=== PATIENT | female | born 1950 | race Caucasian/White ===

== ENCOUNTER 2017-03-24 12:36 | Inpatient (IN) | payer MEDICARE, SELFPAY ==
[2017-03-24 13:26] LABS: Bilirubin Negative (Negative); Blood, Urine Negative (Negative); Clarity CLEAR (Clear); Glucose, Urine (Dipstick) 100 mg/dL (Negative); Leukocyte Negative (Negative); Nitrite Negative (Negative); Protein, Urine (Dipstick) Negative (Neg-Trace); Specific Gravity, Urine 1.016 (1.002-1.036); Urobilinogen 0.2 mg/dL (0.2-1.0); pH, Urine 7.5 (5.0-9.0)
[2017-03-24 13:31] LABS: Hemoglobin 12.2 g/dL (12.0-16.0); Mean Corpuscular HGB CONC 32.9 g/dL (32.0-36.0); Mean Corpuscular Hemoglobin 30.6 pg (27.0-31.0); Mean Corpuscular Volume 92.7 fl (81.0-99.0); Mean Platelet Volume 8.1 fL (7.4-10.4); Platelet Count 262 thou/uL (130-400); RBC Distribution Width 13.7 % (11.5-14.5); White Blood Cell (WBC) Count 12.8 thou/uL (4.8-10.8)
[2017-03-24 13:35] LABS: Medtox Reader # READER 4; Phencyclidine (PCP) Not Detected (NotDetected); THC/Cannabinoid Screen Not Detected (NotDetected)
[2017-03-24 13:36] LABS: Amphetamine Not Detected (NotDetected); Barbiturates Screen Not Detected (NotDetected); Benzodiazepine Screen Not Detected (NotDetected); Cocaine Metabolite Screen Not Detected (NotDetected); Medtox Control Line Valid? VALID (VALID); Methadone Not Detected (NotDetected); Methamphetamine Not Detected (NotDetected); Opiate Screen Not Detected (NotDetected); Oxycodone Screen Not Detected (NotDetected); Tricyclic Screen Detected (NotDetected)
[2017-03-24 13:53] LABS: Acetaminophen Less than 6.0 mcg/mL (10.0-30.0); Alcohol Less than 10 mg/dL (Less than 10); Salicylate Less than 8.0 mg/dL (15.0-30.0)
[2017-03-24 13:57] LABS: Prothrombin Time 13.2 SEC (12.0-14.7)
[2017-03-24 13:58] LABS: Band 8 % (5-11); Lymphocytes 7 % (21-51); MDiff Complete? YES; Monocytes 2 % (0-10); Neutrophil 83 % (42-75); PLT Morphology Comment Appears Adequate
[2017-03-24 14:11] LABS: ALT (SGPT) 17 U/L (8-55); AST (SGOT) 26 U/L (5-34); Albumin 4.1 g/dL (3.4-4.8); Alkaline Phosphatase 91 U/L (40-150); Anion Gap 10 mmol/L (10-20); BUN (Urea Nitrogen) 13 mg/dL (9.8-20.1); Bilirubin, Total 0.4 mg/dL (0.2-1.2); Calc. Creatinine Clearance 0 mL/min (70-130); Calcium 9.3 mg/dL (7.8-10.44); Carbon Dioxide 31 mmol/L (23-31); Chloride 99 mmol/L (98-107); Estimated GFR-MDRD 82; Globulin 2.8 g/dL (2.4-3.5); Glucose 125 mg/dL (80-115); Lipase 9 U/L (8-78); Potassium 3.7 mmol/L (3.5-5.1); Protein, Total 6.8 g/dL (6.0-8.3); Sodium 137 mmol/L (136-145)
[2017-03-24 14:29] LABS: CKMB 2.9 ng/mL (0-6.6); Troponin I Less than 0.010 ng/mL (< 0.028)
--- NOTE | 2017-03-24 14:35 | CT ---
CT BRAIN WITHOUT CONTRAST: HISTORY: Altered mental status. COMPARISON: 01/09/2016 FINDINGS: Changes of mild chronic small vessel ischemic disease are again seen in the periventricular white mat ter. No evidence of acute infarct, hemorrhage, midline shift, or abnormal extraaxial fluid collectio ns is seen. The ventricular size is normal, and the basilar cisterns are patent. The bony calvarium is intact. The visualized paranasal sinuses and mastoid air cells are well aerated. IMPRESSION: No CT evidence of acute intracranial process. POS: OFF
--- NOTE | 2017-03-24 14:37 | RAD ---
PORTABLE CHEST ONE VIEW: 03/24/2017 2:29 p.m. HISTORY: Altered mental status, possible overdose on tramadol. COMPARISON: 12/10/2015 FINDINGS: The heart is enlarged. There is pulmonary vascular congestion. No lobar consolidation, pneumothorac es, or large effusions are seen. POS: OFF
[2017-03-24] MEDS ORDERED: Acetaminophen 650 MG Suppository ONE (15:02)
[2017-03-24] MEDS ORDERED: Naloxone HCl 0.4 mg/ml Vial IV PRN (17:35)
[2017-03-24] MEDS: Sodium Chloride 0.9% 1,000 ML IV SCH (19:35)
[2017-03-24] MEDS ORDERED: Ondansetron HCl/PF 4 MG/2 ML Vial IVP PRN (19:41)
[2017-03-24] MEDS ORDERED: Ondansetron ODT 4 MG TAB SL PRN (19:41)
[2017-03-24] MEDS ORDERED: Acetaminophen 325 MG TAB PO PRN (19:41)
[2017-03-24] MEDS: Heparin 5,000 UNITS/ML VIAL SC SCH (21:55)
--- NOTE | 2017-03-24 22:22 | HP ---
PRIMARY CARE PHYSICIAN: Unknown. PRESENTING COMPLAINT: Altered mental status. HISTORY OF PRESENT ILLNESS: A 67-year-old patient who was found with a change of mental status at home. Her mother found her on the ground with an empty bottle of tramadol by her side. It seemed she has had ingested at least 10 pills, but total amount is actually unknown as is the time of ingestion. EMS was immediately called and the patient was given Narcan, which she seems to respond to and was alert and oriented x2. History limited due to the patient being lethargic. On arrival at the emergency room, she was hypertensive with blood pressure of 172/76 with a pulse rate of 26 and a respiratory rate of 21. She was saturating at 88% on room air. She was immediately placed on nasal cannula oxygen. Labs revealed mild leukocytosis. Chemistry was largely unrevealing with troponin less than 0.010. TSH was 1.6. Urine toxicology detected tricyclics. Emergency room physicians called Poison Control and recommendation was conservative managements with IV fluids and to be on the lookout for possible serotonin syndrome. PAST MEDICAL HISTORY: Chronic lower back pain, migraine headaches, hypothyroidism and diverticulitis. PAST SURGICAL HISTORY: Lumpectomy and lipomectomy. ALLERGIES: PENICILLIN and PROPOXYPHENE. FAMILY AND SOCIAL HISTORY: Unobtainable due to patient's current condition. She is a former smoker with no history of drug use or alcohol use (from chart review). REVIEW OF SYSTEMS: Review of systems is unobtainable due to patient's current altered status. PHYSICAL EXAMINATION: GENERAL: The patient is lethargic, but oriented to person and place. VITAL SIGNS: Blood pressure is 132/84, heart rate is 95, respiratory rate is 20 , she is saturating at 92% on 4 liters of supplemental oxygen via nasal cannula. HEENT: Pupils are dilated, responsive to the light. No pallor, anicteric. NECK: Supple. LUNGS: Patient is taking shallow breaths, but vesicular with no wheezes or rales appreciated. CARDIOVASCULAR: S1 and S2 only. No murmurs, rubs or gallop. ABDOMEN: Soft, nontender and nondistended. Positive bowel sounds. No organomegaly. EXTREMITIES: No edema. NEUROLOGIC: Unable to cooperate with exam. SKIN: Warm, dry and well-perfused. MUSCULOSKELETAL: No abnormalities or deformities appreciated. LABORATORY DATA: CBC and CMP unremarkable. Urinalysis also unremarkable. Toxicology with only significant finding being tricyclic detected. IMAGING DATA: Chest x-ray: Enlarged heart with vascular congestion, but no consolidation or effusions. CT brain without contrast showed no acute pathology. ASSESSMENT AND PLAN: 1. Medication overdose, unclear if it is an accidental or intentional overdose. Patient will be admitted to tele and recommendation from Poison Control is to monitor the patient for at least 6-8 hours and observe for possible serotonin syndrome. She will be placed on tele given liberal IV fluids. We will obtain an [facility] evaluation when patient is more alert and oriented. We will also have Narcan p.r.n. for any signs of respiratory depression. 2. Anxiety and depression. The patient's medication will be held. 3. Chronic pain disorder, also her medications will be held and she will be observed closely while in the hospital. Of note, patient also has a history of fibromyalgia and this is actually her second episode of accidental overdose of prescription medications. Last admission was in 12/2016 where she reported taking extra medications due to continued pain. She became altered and required admission to the ICU, but no intubation. TONNY
[2017-03-25] MEDS: Sodium Chloride 0.9% 1,000 ML IV SCH ×2 (00:51→14:57)
[2017-03-25] MEDS ORDERED: SUMAtriptan Succinate 50 MG TAB PO SCH (01:45)
[2017-03-25 01:51] VITALS: BMI 34.1
[2017-03-25 05:40] LABS: #Basophils 0.1 thou/uL (0.0-0.2); #Eosinphils 0.1 thou/uL (0.0-0.7); #Lymphocytes 1.8 thou/uL (1.20-3.40); #Monocytes 0.7 thou/uL (0.11-0.59); #Neutrophils 11.9 thou/uL (1.40-6.50); %Basophils 0.8 % (0.0-1.0); %Eosinophils 0.7 % (0.0-10.0); %Neutrophils 81.5 % (42.0-75.0); Hemoglobin 11.8 g/dL (12.0-16.0); Mean Corpuscular HGB CONC 31.7 g/dL (32.0-36.0); Mean Corpuscular Volume 94.5 fl (81.0-99.0); Mean Platelet Volume 9.1 fL (7.4-10.4); Platelet Count 245 thou/uL (130-400); Red Blood Cell (RBC) Count 3.92 mill/uL (4.20-5.40); White Blood Cell (WBC) Count 14.6 thou/uL (4.8-10.8)
[2017-03-25 05:49] LABS: Anion Gap 10 mmol/L (10-20); BUN (Urea Nitrogen) 11 mg/dL (9.8-20.1); Calc. Creatinine Clearance 132 mL/min (70-130); Calcium 8.6 mg/dL (7.8-10.44); Carbon Dioxide 28 mmol/L (23-31); Chloride 104 mmol/L (98-107); Estimated GFR-MDRD Greater than 90; Glucose 79 mg/dL (80-115); Potassium 3.5 mmol/L (3.5-5.1); Sodium 138 mmol/L (136-145)
[2017-03-25] MEDS ORDERED: Levothyroxine Sodium 50 MCG TAB PO SCH (08:00)
[2017-03-25] MEDS ORDERED: Non-Formulary Item 1 EACH (Esomeprazole Magnesium [Nexium] 40 MG) PO SCH (08:00)
[2017-03-25] MEDS ORDERED: Potassium Chloride 20 MEQ TAB PO SCH (08:00)
[2017-03-25] MEDS ORDERED: traMADol HCl 50 MG TAB PO PRN (08:58)
[2017-03-25] MEDS ORDERED: Non-Formulary Item 1 EACH (Pregabalin [Lyrica] 300 MG) PO SCH (09:00)
[2017-03-25] MEDS ORDERED: Escitalopram Oxalate 10 mg Tablet PO SCH (09:00)
[2017-03-25] MEDS ORDERED: Levothyroxine Sodium 112 MCG TAB PO SCH (09:00)
[2017-03-25] MEDS: Heparin 5,000 UNITS/ML VIAL SC SCH ×2 (09:15→14:53)
[2017-03-25] MEDS ORDERED: Pregabalin 75 MG CAP PO SCH ×2 (10:30→21:00)
[2017-03-25 15:55] VITALS: BP 146/67; TEMP 99.3
--- NOTE | 2017-03-26 02:50 | DIS ---
DATE OF ADMISSION: 03/24/2017 DATE OF DISCHARGE: 03/25/2017 PRIMARY DIAGNOSIS: Medication overdose. SECONDARY DIAGNOSES: Anxiety/depression, chronic pain disorder, hypothyroidism, migraine headaches HISTORY OF PRESENT ILLNESS AND HOSPITAL COURSE: This is a 67-year-old patient, Ms. Xenia cervantes presented to the emergency room after being found with a change of mental status at home. The pat trini's mother found on the ground with an empty bottle of tramadol by her side. It seems she had ing ested maybe 10 pills, but total amount actually unknown as well as the time of ingestion. EMS was im mediately called and patient was given Narcan on which she seemed to respond to and became alert and oriented x2. History limited due to patient being lethargic. On examination of the emergency room, she was hypertensive with blood pressure of 172/76 with a pulse rate of 26 and respiratory rate of 21 . She was saturating at 88% on room air. She was immediately placed on nasal cannula oxygen. Labs revealed mild leukocytosis. Serum chemistry was largely unrevealing with troponin less than 0.010. TSH was 1.6. Urine toxicology detected tricyclics, which the patient takes at home. Emergency room physician called Poison Control. Recommendation was conservative management with IV fluids. Monitor on telemetry for at least 6 hours and to be on the lookout for possible serotonin syndrome. During her stay, she became alert and oriented x3 and was back to her baseline. Labs were unremarkable. Di scussion was had with the patient regarding her medication use and she denied intention of ingestion of her pain meds. Further discussion was held regarding to dialing down on her pain medication due t o this pain, second time she was admitted for medication overdose. The patient declined and would li ke to continue to take her medications as prescribed by her primary care physician. She was then dis charged without incident. DISCHARGE MEDICATIONS: Potassium chloride 20 mEq every morning with breakfast for 5 days, levothyrox ine sodium 50 mcg daily, cyclobenzaprine 10 mg orally at bedtime as needed, esomeprazole 40 mg oral e very morning with breakfast, tramadol 50 mg 3 times a day as needed for pain, pregabalin 300 mg twice daily, citalopram 10 mg oral daily, acetaminophen 325 mg 4 times a day as needed for pain. PHYSICAL EXAMINATION: VITAL SIGNS: Temperature 97.8, pulse 66, blood pressure 130/60, respirations 17, oxygen saturation 9 7% on room air. LABORATORY DATA: Sodium 138, potassium 3.5, chloride 104, carbon dioxide 28, anion gap 7, BUN 11, cr eatinine 0.58. WBC 14.6, RBC 3.92, hemoglobin 11.8, platelets 245. DISPOSITION: Stable and improved. CONSULTATION: Poison Control. PROCEDURES: None. DIET: Regular. CARE GOALS: The patient encouraged to follow up with her primary care physician within 1 week of dis charge. She is also encouraged to return to the emergency room if she developed any episode of confu amador, chest pain, shortness of breath or loss of consciousness. ACTIVITY: To resume as tolerated. At the time of discharge, 65 minutes including chart review and d ocumentation.
[2017-03-26] MEDS ORDERED: Levothyroxine Sodium 50 MCG TAB PO SCH (06:00)
--- NOTE | 2017-05-03 14:21 | EKG ---
Test Reason : AMS Blood Pressure : / mmHG Vent. Rate : 095 BPM Atrial Rate : 095 BPM P-R Int : 156 ms QRS Dur : 106 ms QT Int : 368 ms P-R-T Axes : 058 026 053 degrees QTc Int : 462 ms Normal sinus rhythm Normal ECG Confirmed by RAHUL SOLORZANO M.D. ([id number]), content editor GIAN ORDAZ ([id number]) on 05/03/2017 2:20:57 PM Referred By: Confirmed By:RAHUL SOLORZANO M.D.
== END 2017-03-25 15:45 | disposition home or self-care (01) | DRG 918 ==
LOC: ERS 12:36 → OBSVTOIN 15:43 → 2NO 15:43
PROVIDERS: ADMIT Internal Medicine; ATTEND Internal Medicine
DX: T40.4X1A Poisoning by other synthetic narcotics, accidental (unintentional), initial encounter (principal); I15.8 Other secondary hypertension; E03.9 Hypothyroidism, unspecified; Y92.019 Unspecified place in single-family (private) house as the place of occurrence of the external cause; G89.29 Other chronic pain; M54.5 Low back pain; G43.909 Migraine, unspecified, not intractable, without status migrainosus; Z88.0 Allergy status to penicillin; Z88.8 Allergy status to other drugs, medicaments and biological substances; F41.9 Anxiety disorder, unspecified; F32.9 Major depressive disorder, single episode, unspecified; M79.7 Fibromyalgia; Z87.891 Personal history of nicotine dependence
CPT/HCPCS: 36415; 36416; 70450; 71045; 80048; 80053; 80306; 80307; 81003; 82553; 83690; 83735; 84443; 84484; 85025; 85610; 87804; 93005; 96360; 96361; A4216; J1644

== ENCOUNTER 2018-02-14 07:46 | Inpatient (IN) | payer MEDICARE ==
[2018-02-14 08:34] LABS: #Eosinphils 0.1 thou/uL (0.0-0.7); #Lymphocytes 1.2 thou/uL (1.20-3.40); #Monocytes 0.7 thou/uL (0.11-0.59); #Neutrophils 10.4 thou/uL (1.40-6.50); %Basophils 0.3 % (0.0-1.0); %Eosinophils 0.5 % (0.0-10.0); %Lymphocytes 9.3 % (21.0-51.0); %Monocytes 5.6 % (0.0-10.0); %Neutrophils 84.2 % (42.0-75.0); Mean Corpuscular HGB CONC 32.8 g/dL (32.0-36.0); Mean Corpuscular Hemoglobin 28.7 pg (27.0-31.0); Mean Corpuscular Volume 87.2 fL (78.0-98.0); Mean Platelet Volume 7.7 fL (7.4-10.4); Platelet Count 300 thou/uL (130-400); RBC Distribution Width 13.1 % (11.5-14.5); Red Blood Cell (RBC) Count 4.19 mill/uL (4.20-5.40); White Blood Cell (WBC) Count 12.3 thou/uL (4.8-10.8)
[2018-02-14 08:53] LABS: ALT (SGPT) 20 U/L (8-55); AST (SGOT) 30 U/L (5-34); Acetaminophen Less than 6.0 mcg/mL (10.0-30.0); Albumin 4.1 g/dL (3.4-4.8); Alcohol Less than 10 mg/dL (Less than 10); Alkaline Phosphatase 88 U/L (40-150); Anion Gap 14 mmol/L (10-20); BUN (Urea Nitrogen) 16 mg/dL (9.8-20.1); Bilirubin, Total 0.5 mg/dL (0.2-1.2); CK (CPK) 602 U/L (29-168); Calc. Creatinine Clearance 0 mL/min (70-130); Calcium 8.9 mg/dL (7.8-10.44); Carbon Dioxide 27 mmol/L (23-31); Chloride 96 mmol/L (98-107); Estimated GFR-MDRD 74; Globulin 2.4 g/dL (2.4-3.5); Glucose 99 mg/dL (80-115); Potassium 4.6 mmol/L (3.5-5.1); Protein, Total 6.5 g/dL (6.0-8.3); Salicylate Less than 8.0 mg/dL (15.0-30.0); Sodium 132 mmol/L (136-145)
[2018-02-14 09:12] LABS: Analyzer IN Cardio ER; Base Excess (BEa) 1.6 mEq/L (-2.0 to +3.0); CO2 Tension 40.3 mmHg (35.0-45.0); Carboxyhemoglobin (COHb) 0.3 gm% (0.0-3.0); Hemoglobin (Hb) 12.7 g/dL (12.0-16.0); O2 Tension (PaO2) 65.7 mmHg (> 80.0); Potassium - ABG Lab 4.32 mmol/L (3.70-5.30); pH, Arterial 7.43 (7.35-7.45)
[2018-02-14 09:15] LABS: ALV-art Gradient 55.045 (0-20)
[2018-02-14 09:16] LABS: Puncture Site RR
[2018-02-14 09:27] LABS: Bilirubin Negative (Negative); Blood, Urine Negative (Negative); Clarity CLEAR (Clear); Glucose, Urine (Dipstick) 250 mg/dL (Negative); Leukocyte Negative (Negative); Nitrite Negative (Negative); Protein, Urine (Dipstick) Negative (Neg-Trace); Specific Gravity, Urine 1.023 (1.002-1.036); Urobilinogen 0.2 mg/dL (0.2-1.0)
[2018-02-14 09:37] LABS: Amphetamine Not Detected (NotDetected); Barbiturates Screen Not Detected (NotDetected); Benzodiazepine Screen Not Detected (NotDetected); Cocaine Metabolite Screen Not Detected (NotDetected); Medtox Control Line Valid? VALID (VALID); Medtox Reader # READER 1; Methadone Not Detected (NotDetected); Methamphetamine Not Detected (NotDetected); Opiate Screen Not Detected (NotDetected); Oxycodone Screen Not Detected (NotDetected); Phencyclidine (PCP) Not Detected (NotDetected); THC/Cannabinoid Screen Not Detected (NotDetected); Tricyclic Screen Detected (NotDetected)
--- NOTE | 2018-02-14 09:59 | CT ---
NONCONTRAST CT HEAD: DATE: 02/14/2018. HISTORY: Altered mental status. COMPARISON: 03/24/2017. FINDINGS: Again noted are scattered low-density areas in the periventricular and subcortical white matter which are nonspecific but likely reflective of chronic small-vessel ischemic changes which have not progre ssed from the prior exam. There is no evidence of an acute cortical infarction, hemorrhage, mass eff ect, or midline shift. Low-density focus is seen within the anterior limb of left internal capsule w hich is more prominent on the prior exam and may be likely attributable to remote lacunar infection. Ventricular system is normal in size, shape, and position. Minimal mucosal thickening is seen in a few ethmoidal air cells. Mastoid air cells are clear. Calvarial structures are intact. IMPRESSION: 1. No acute intracranial abnormalities demonstrated. 2. Findings likely attributable to chronic small-vessel ischemic changes similar to prior exam. 3. Probable remote lacunar infarction anterior limb left internal capsule. POS: [facility]
--- NOTE | 2018-02-14 10:08 | RAD ---
ONE VIEW CHEST: COMPARISON: 03/24/2017. HISTORY: Altered mental status. FINDINGS: Atherosclerosis of the aorta. Normal cardiac silhouette. The pulmonary vessels and hilum are normal . Costophrenic angles are clear. NO mass. No consolidation. No pneumothorax or osseous abnormalit ies. IMPRESSION: Atherosclerosis. No acute cardiopulmonary process. POS: [facility]
--- NOTE | 2018-02-14 10:23 | CT ---
CT ANGIOGRAM THORAX WITH IV CONTRAST AND 3D RECONSTRUCTIONS: DATE: 02/14/2018. HISTORY: Elevated D-dimer. Bilateral leg pain. COMPARISON: None available. FINDINGS: No filling defects are seen in the pulmonary arteries to suggest a pulmonary embolus. Vascular calcifications are seen in the thoracic aorta, but the thoracic aorta is normal in caliber w ithout evidence of aortic dissection. There are a few scattered patchy ground-glass densities at each lung base which could be related to v olume loss as this exam was obtained in shallow depth of inspiration, but areas of pneumonitis could not be entirely excluded. There is dependent atelectasis bilaterally. No pleural effusion, pulmonar y nodule, or mass is visualized. There is gaseous distention of the esophagus. There is no evidence of lymphadenopathy. There is a small aneurysm involving the distal left splenic artery measuring 15 mm x 12 mm in axial d imensions. There is a suggestion of a very small hiatal hernia. There is a moderate amount of retained fecal material in the region of the splenic flexure with a sma ll amount of retained fecal material within the hepatic flexure. IMPRESSION: 1. Small splenic artery aneurysm. 2. Ground-glass densities within the lungs bilaterally, and this may be attributable to atelectasis given that this exam was obtained in expiratory phase of imaging. However, areas of pneumonitis coul d not be entirely excluded. 3. No CT evidence of a pulmonary embolus. 4. Vascular calcifications. 5. Distention of the gallbladder measuring 10.1 cm in length. No pericholecystic fluid or stranding is seen on this exam. 6. No CT evidence of a pulmonary embolus. POS: [facility]
--- NOTE | 2018-02-14 10:26 | CT ---
CT LEFT KNEE NONCONTRAST: HISTORY: Left knee fracture. FINDINGS: Sagittally oriented oblique fracture through the articular surface of the medial tibial plateau is pr esent with 0.4 cm gap and 0.1 cm depression. Nondisplaced comminuted coronally oriented components a lso involve the anterior aspect of the tibial spines. The major fracture exits the medial base of th e medial tibial plateau with 0.2 cm displacement. Minimally distracted comminuted axial fracture of the proximal tip of the fibular head is best demonstrated on the sagittal images. Heterogeneous flui d and fat distend the suprapatellar bursa. Osteoarthritic changes also involve the knee. Within the bone marrow of the partially visualized femoral shaft and the proximal tibial shaft are la kes of heterogeneous density that may represent vascular anomalies. IMPRESSION: 1. Split depression fracture of the medial tibial plateau with large lipohemarthrosis. Minimal depr ession. 2. Fibular head fracture. POS: [facility]
--- NOTE | 2018-02-14 10:34 | RAD ---
FOUR VIEWS LEFT KNEE: HISTORY: Pain. Fall. COMPARISON: 09/22/2015. FINDINGS: There is a large suprapatellar effusion. There is a fracture involving the proximal fibula as well a s the tibial plateau medially. There is intraarticular extension. IMPRESSION: Suprapatellar effusion with a fat fluid level. Proximal tibia and fibula fractures. POS: [facility]
[2018-02-14] MEDS ORDERED: Multivitamins, Adult 10 ML, Thiamine HCl 100 MG, Folic Acid 1 MG in Dextrose 5 %-0.45 %... IV SCH (11:30)
[2018-02-14] MEDS ORDERED: Iopamidol 370 76% 100 ML VIAL ONE (14:27)
[2018-02-14 16:40] VITALS: BMI 31.1
[2018-02-14] MEDS ORDERED: Acetaminophen 650 MG Suppository PR PRN (16:41)
[2018-02-14] MEDS ORDERED: Ondansetron PF 4 MG/2 ML Vial IVP PRN (16:41)
[2018-02-14] MEDS: Famotidine 20 MG TAB PO SCH (20:47)
[2018-02-14] MEDS: Sodium Chloride 0.9% 1,000 ML IV SCH (20:48)
--- NOTE | 2018-02-14 21:37 | HP ---
PRIMARY CARE PHYSICIAN: Dr. Janene Paul or Dr. Dominguez, uncertain at this time. CHIEF COMPLAINT: Found down, altered mental status. HISTORY OF PRESENT ILLNESS: History obtained from emergency physician and from EMS as the patient is altered and unable to give history. The patient was brought by EMS from home, where she lives with her mother. There was by EMS report a fall one week ago with complaint of right leg pain and this morning fall again with complaint of left leg pain and upper right leg pain. The patient was unable to get up after the fall. She was down for an unknown length of time. She was found to be saturating 85% on room air by EMS and to be mumbling, unable to communicate clearly. The patient was brought to the emergency room, there she had a CT of the head, which has showed an old lacunar infarct, nothing acute. She also had an elevated D-dimer of 20. A CTA of the chest was negative for clots and she had an x-ray of the left knee, which showed a tibial plateau fracture and proximal fibular fracture. CT confirmed these, Dr. Price was consulted from the emergency room, he stated to put her in a brace and wait until she clears before doing surgery. The patient was given IV fluids and perked up a little bit in the emergency room; however, she still mostly incoherently mumbling and not able to give any history. She is able to follow some basic commands. PAST MEDICAL HISTORY: All medical history taken from the chart as the patient is altered at this time. 1. Chronic low back pain. 2. Migraine headaches. 3. Hypothyroidism. 4. Diverticulosis. PAST SURGICAL HISTORY: 1. Lumpectomy. 2. Lipectomy. 3. Tonsillectomy and adenoidectomy. SOCIAL HISTORY: The patient is reportedly a former smoker. No known drug or alcohol abuse in the chart, though she has had multiple admissions for prescription medication overdose. She lives with her elderly mother. PAST PSYCHIATRIC HISTORY: Depression. ALLERGIES: PENICILLIN AND PROPOXYPHENE. CURRENT MEDICATIONS: Unknown. REVIEW OF SYSTEMS: Unable to obtain secondary to the patient's altered mental status. PHYSICAL EXAMINATION: VITAL SIGNS: Blood pressure 114/79, pulse 75, respirations 20, O2 saturation 98% on 2 L, temperature 98.1. GENERAL: This is a well-developed obese white female, who is alert, but muttering and mumbling and unable to communicate clearly. HEENT: Pupils are equal, round, and reactive to light. She does have some rotary nystagmus. Oropharynx, dry. No exudate or lesions. NECK: No masses. No evidence of trauma. No lymphadenopathy. HEART: Regular rate and rhythm. No murmurs, rubs, or gallops. LUNGS: Clear to auscultation bilaterally. No wheezes, crackles, or rhonchi. ABDOMEN: Soft, obese, nontender to palpation. Normoactive bowel sounds. No hepatosplenomegaly or other masses. EXTREMITIES: The patient has a brace to the left knee. She has no other evidence of trauma. No tenderness on palpation. SKIN: No rashes or lesions noted. NEUROLOGIC: The patient seems to be moving all extremities equally. She does have a bit of a tremor. Her coordination does not appear to be very good right now. I will do a full neurologic exam due to her altered mental status. PSYCHIATRIC: She is alert. She is unable to tell me even her name right now, though she was able to for the ER doctor earlier. She is mostly mumbling and muttering, saying she needs to get out of bed as far as I can tell, but no other understandable mutters at this time. This is fluctuated as far as her level per the nursing since she has gotten here. LABORATORY DATA: White blood cell count 12.3 with a neutrophilic predominance of 84%. The remainder of the CBC was normal. Coagulation profile showed a D-dimer of 20. Arterial blood gas showed normal pH, normal pCO2, and normal pO2. Complete metabolic panel was notable for a sodium of 132, chloride of 96. The rest was normal. Creatine kinase was elevated at 602. Brain natriuretic peptide was normal. Lipase was normal. Troponin was negative. Ammonia level was normal. Lactic acid was normal. Urinalysis showed no evidence of infection. Toxicology report just showed positive for tricyclics. DIAGNOSTIC DATA: Chest x-ray: I did review the chest x-ray done in the emergency room along with the radiologist's report, no evidence of infiltrates or cardiomegaly. No congestion. No congestive changes. No evidence of trauma. CT brain imaging and CTA of the chest are as above in the HPI. EKG done in the emergency room shows rate of 82 beats per minute, occasional PVCs, OR interval was normal. ASSESSMENT: 1. Fall with tibial plateau fracture and fibular fracture. The patient is currently in a brace when she clears mentally then Dr. Price will likely take her back to surgery. 2. Acute encephalopathy. This is given her history is most likely due to another overdose of her tramadol and other medications. She has had multiple presentations for this over the last few years. We will watch her on telemetry and make certain that her O2 saturations stay up and that she make sure that she clears overtime. I anticipated over the next day or so, she will start speaking more coherently. At this point, I do not see any other metabolic or source for this altered mental status. She does not have any evidence of acute stroke on her exam. If she does remain altered without any improvement, we can always consider an MRI. 3. Hypothyroidism. Resume home medications. 4. Chronic back pain. We will need to hold on narcotic pain medications at this time due to her altered mental status, though she will likely need some pain medicine for her fractured leg when she starts to clear. 5. Deep venous thrombosis prophylaxis. Put the patient on Lovenox daily. 6. Code status. Unable to discuss due to the patient's altered mental status and no family available at this time. For now, she is a full code. Job ID: [id number]
[2018-02-15] MEDS ORDERED: Morphine 4 MG/ML VIAL SLOW IVP SCH (03:00)
[2018-02-15 05:46] LABS: #Basophils 0.1 thou/uL (0.0-0.2); #Eosinphils 0.3 thou/uL (0.0-0.7); #Lymphocytes 1.3 thou/uL (1.20-3.40); #Monocytes 0.6 thou/uL (0.11-0.59); #Neutrophils 6.8 thou/uL (1.40-6.50); %Basophils 0.7 % (0.0-1.0); %Eosinophils 3.1 % (0.0-10.0); %Lymphocytes 14.6 % (21.0-51.0); %Monocytes 6.4 % (0.0-10.0); %Neutrophils 75.2 % (42.0-75.0); Mean Corpuscular HGB CONC 33.3 g/dL (32.0-36.0); Mean Corpuscular Hemoglobin 29.2 pg (27.0-31.0); Mean Corpuscular Volume 87.6 fL (78.0-98.0); Mean Platelet Volume 8.1 fL (7.4-10.4); Platelet Count 284 thou/uL (130-400); RBC Distribution Width 13.3 % (11.5-14.5); Red Blood Cell (RBC) Count 4.47 mill/uL (4.20-5.40)
[2018-02-15] MEDS: Levothyroxine Sodium 50 MCG TAB PO SCH (06:04)
[2018-02-15 06:08] LABS: Anion Gap 14 mmol/L (10-20); BUN (Urea Nitrogen) 5 mg/dL (9.8-20.1); Calc. Creatinine Clearance 109 mL/min (70-130); Calcium 9.1 mg/dL (7.8-10.44); Carbon Dioxide 26 mmol/L (23-31); Chloride 104 mmol/L (98-107); Estimated GFR-MDRD Greater than 90; Glucose 89 mg/dL (80-115); Potassium 3.8 mmol/L (3.5-5.1); Sodium 140 mmol/L (136-145)
[2018-02-15] MEDS: Famotidine 20 MG TAB PO SCH ×2 (09:21→20:58)
[2018-02-15] MEDS ORDERED: Clindamycin/D5W 900 MG in Premix Bag 1 BAG IVPB SCH (09:30)
[2018-02-15] MEDS: Sodium Chloride 0.9% 1,000 ML IV SCH ×2 (09:32→21:00)
--- NOTE | 2018-02-15 11:18 | PDOC.PN ---
- Subjective Encounter Start Date: 02/15/18 Encounter Start Time: 11:05 Subjective: f/u for L tibial plateau and prox fibula fx s/p fall. Also AMS likely -: due to medication effect. Overall c/o whole body pain and fibromyalgia. - Objective Resuscitation Status - Order Detail: 02/14/18 14:03 Resuscitation Status Routine Resuscitation Status: FULL: Full Resuscitation MAR Reviewed: Yes Vital Signs & Weight: Vital Signs (12 hours) Temp Pulse Resp BP Pulse Ox 02/15/18 09:19 98.6 F 64 16 177/83 H 96 02/15/18 03:02 98.7 F 76 18 147/84 H 98 Weight Weight 173 lb 12.8 oz I&O: 02/14/18 02/15/18 02/16/18 06:59 06:59 06:59 Intake Total 1540 Output Total 2600 Balance -1060 Result Diagrams: 02/15/18 05:02 02/15/18 05:02 Radiology Reviewed by me: Yes (L knee - prox tibial plateau and prox fibula fx) EKG Reviewed by me: Yes (Tele - SR) Phys Exam - Physical Examination Constitutional: NAD HEENT: PERRLA, sclera anicteric, oral pharynx no lesions Neck: no nodes, no JVD, supple, full ROM Respiratory: no wheezing, no rales, no rhonchi, clear to auscultation bilateral S1, S2 Cardiovascular: RRR, no significant murmur, no rub, gallop Gastrointestinal: soft, non-tender, no distention, positive bowel sounds L knee with edema Musculoskeletal: pulses present, edema present Neurological: normal sensation, moves all 4 limbs Psychiatric: A&O x 3 Skin: normal turgor, cap refill <2 seconds Dx/Plan (1) Acute metabolic encephalopathy Code(s): G93.41 - METABOLIC ENCEPHALOPATHY Status: Acute Comment: Likely polypharmacy etiology, improved overall, resume and monitor home medications, may need to titrate psychotropes (2) Closed fracture of left proximal tibia Code(s): S82.102A - UNSP FRACTURE OF UPPER END OF LEFT TIBIA, INIT FOR CLOS FX Status: Acute Comment: Plan for ORIF in am 02/16/18, pain control (3) Fracture of left proximal fibula Code(s): S82.832A - OTH FRACTURE OF UPPER AND LOWER END OF LEFT FIBULA, INIT Status: Acute (4) Medication overdose Code(s): T50.901A - POISONING BY UNSP DRUG/MEDS/BIOL SUBST, ACCIDENTAL, INIT Status: Suspected Comment: Suspect polypharmacy, monitor clinically (5) Anxiety and depression Code(s): F41.9 - ANXIETY DISORDER, UNSPECIFIED; F32.9 - MAJOR DEPRESSIVE DISORDER, SINGLE EPISODE, UNSPECIFIED Status: Chronic (6) Fibromyalgia Status: Chronic - Plan psychotherapist social worker Stable currently -: Lovenox for DVT ppx -: Morphine Sulfate IV prn pain control -: Continue IVF's -: ORIF L knee/tibia in am 02/16/18 * .
[2018-02-15] MEDS: Enoxaparin Sodium 40 MG/0.4 ML SYRINGE SC SCH (11:58)
[2018-02-15] MEDS: traMADol HCl 50 MG TAB PO PRN ×2 (11:58→20:58)
--- NOTE | 2018-02-15 12:26 | CON ---
DATE OF CONSULTATION: REQUESTING PHYSICIAN: Dr. Fiore. BRIEF HISTORY OF PRESENT ILLNESS: The patient is a 67-year-old lady, who was brought to the emergency room by family members after a fall at home. Upon initial evaluation by the emergency medical services at home, she was found to have low oxygen saturations, had a complaint of left leg pain and was found to be confused. On evaluation in the emergency room, she clearly was incoherent and not alert or oriented. As such, the patient was admitted to the medical service. Workup included chest x-ray, CT angiogram of the chest that showed no evidence of clot or pulmonary emboli. She also had x-rays performed of the left leg that did show an anteromedial tibial plateau fracture and a small avulsion injury from the proximal fibula. The patient was placed in a knee immobilizer and has been worked up by the medical service, and at this time, is felt to be stable for surgical intervention. PAST MEDICAL HISTORY: Remarkable for chronic low back pain, migraine headaches, hypothyroidism, and diverticulosis. PAST SURGICAL HISTORY: Includes lumpectomy, tonsillectomy, and adenoids. SOCIAL HISTORY: The patient is a former smoker. She denies alcohol abuse, although does have some difficulties with prescription medications and has been present in the emergency room for a prior prescription medication overdose. ALLERGIES: TO PENICILLIN AND PROPOXYPHENE. MEDICATIONS AT HOME: Include, 1. Acetaminophen. 2. Cleocin. 3. Nexium. 4. Flexeril. 5. Levothyroxine. PHYSICAL EXAMINATION: VITAL SIGNS: She was found to have a temperature of 98.6, heart rate of 64, respiratory rate of 16, and blood pressure of 177/83. She is examined in her hospital bed at [facility]. GENERAL: She is a mildly overweight female, who is lying comfortably in bed. She does appear coherent this morning and is awake, alert, and oriented to person, place, and time. HEENT: Atraumatic, normocephalic. HEART: Shows a regular rate and rhythm without murmur. LUNGS: Clear to auscultation bilaterally with good breath sounds. Chest wall is nontender. ABDOMEN: Round and soft with normal bowel sounds. EXTREMITIES: Remarkable for a left lower extremity and knee immobilizer. She was found to have a 1+ hemarthrosis within the knee. Range of motion not tested due to the acute nature of her injury. She is tender to palpation at the anteromedial tibial plateau as well as at the proximal fibula, although no gross deformity or varus or valgus deformity at the knee is noted. Distal neurovascular exam is intact. She is able to dorsi and plantar flex her ankle and toes comfortably. There is no pain with passive stretch. LABORATORY DATA: White count of 9.0, hematocrit of 39.1, and 284,000 platelets. Her basic metabolic panel is roughly within normal limits with a slightly low BUN on this followup lab. X-rays are as stated in the history of present illness. ASSESSMENT: A 67-year-old lady status post ground level fall sustaining a fracture of anteromedial tibial plateau with mild depression of the anteromedial fragment as well as a small avulsion type injury of the proximal fibula. PLAN: Today, I discussed with the patient that she does indeed have a mildly displaced fracture of the tibial plateau. We have discussed treatment options including benign neglect versus proceeding with an open reduction and internal fixation to try and restore the joint surface to a more anatomical alignment. At this time, the patient would like to proceed with surgery. Today, risks and benefits of the procedure were discussed with the patient. Risks include, but are not limited to bleeding, infection, nerve injury, DVT, PE, knee arthritis, knee stiffness, loss of limb or life. The patient appears to understand and does wish to proceed. Written consent will be obtained prior to surgery. Job ID: [id number]
[2018-02-15] MEDS: Morphine 4 MG/ML VIAL SLOW IVP PRN ×2 (14:02→23:41)
[2018-02-15] MEDS: Acetaminophen 325 MG TAB PO PRN (15:58)
[2018-02-15] MEDS: Cyclobenzaprine 10 MG TAB PO PRN (20:59)
[2018-02-16] MEDS: Morphine 4 MG/ML VIAL SLOW IVP PRN ×2 (05:08→21:58)
[2018-02-16] MEDS: Levothyroxine Sodium 50 MCG TAB PO SCH (05:09)
[2018-02-16] MEDS ORDERED: Clindamycin/D5W 900 mg/50 ml Premix Bag ONE (06:51)
[2018-02-16] MEDS ORDERED: Fentanyl 100 MCG/2 ML VIAL ONE ×2 (08:02→10:00)
[2018-02-16] MEDS ORDERED: Promethazine HCl 25 MG/ML VIAL IM PRN (09:08)
[2018-02-16] MEDS ORDERED: Promethazine HCl 25 MG/ML VIAL SLOW IVP PRN (09:08)
[2018-02-16] MEDS ORDERED: Ondansetron HCl/PF 4 MG/2 ML Vial IVP PRN (09:08)
[2018-02-16] MEDS ORDERED: Bupivacaine PF 0.5% 30 ML VIAL ONE (09:08)
[2018-02-16] MEDS ORDERED: hydrALAZINE 20 MG/ML VIAL ONE (09:42)
[2018-02-16] MEDS ORDERED: hydrALAZINE 20 MG/ML VIAL SLOW IVP SCH (10:15)
[2018-02-16] MEDS: Sodium Chloride 0.9% 1,000 ML IV SCH ×2 (11:19→17:56)
[2018-02-16] MEDS: Escitalopram Oxalate 20 mg Tablet PO SCH (11:24)
[2018-02-16] MEDS: Enoxaparin Sodium 40 MG/0.4 ML SYRINGE SC SCH (11:24)
[2018-02-16] MEDS: Famotidine 20 MG TAB PO SCH ×2 (11:24→21:31)
[2018-02-16] MEDS: Ondansetron ODT 4 MG TAB PO PRN ×2 (13:56→21:29)
[2018-02-16] MEDS: Clindamycin/D5W 900 MG in Premix Bag 1 BAG IVPB SCH ×2 (13:58→21:29)
[2018-02-16] MEDS: SUMAtriptan Succinate 50 MG TAB PO PRN (14:37)
--- NOTE | 2018-02-16 15:43 | RAD ---
LEFT LOWER LEG 2 VIEWS INTRAOPERATIVE FLUOROSCOPY: HISTORY: Fracture. FINDINGS: Intraoperative fluoroscopy is provided for internal fixation as performed by Dr. Price. Spot fluo roscopic images show medial compression plate and multiple screws transfixing the medial tibial plate au. Alignment is anatomic. FLUORO TIME: 27 seconds. POS: [facility]
[2018-02-16] MEDS ORDERED: Diltiazem HCl 125 MG, Admixture Fee 1 EACH in Sodium Chloride 0.9% 100 ML IVPB SCH (15:45)
--- NOTE | 2018-02-16 16:01 | OP ---
DATE OF PROCEDURE: 02/16/2018 PREOPERATIVE DIAGNOSIS: Left anterior medial tibial plateau fracture. POSTOPERATIVE DIAGNOSIS: Left anterior medial tibial plateau fracture. PROCEDURE PERFORMED: Open reduction and internal fixation of left medial tibial plateau. ANESTHESIA: General. PULVI MIXER OPERATOR: Trinity Del Toro PA-C. IMPLANT: Synthes small fragment T-plate, 4-hole. TOURNIQUET TIME: 45 minutes at 300 mmHg. COMPLICATIONS: None. DRAINS: None. SPECIMENS: None. OUTCOME: Near-anatomic alignment. INDICATIONS: The patient is a 67-year-old lady, status post ground level fall, which was unwitnessed. The patient was initially brought into the hospital due to altered mental state and altered level of consciousness. During workup, she had complaints of left knee pain and x-ray and followup CT scan confirmed an anterior medial tibial plateau fracture with mild depression and displacement. After discussion with the patient including risks and benefits, we decided to proceed with open reduction and internal fixation. Informed consent has been obtained. I believe all questions answered. DESCRIPTION OF PROCEDURE: The patient was brought to the operating room, and a time-out performed followed by induction of general anesthesia. The patient was then positioned supine on the OR table, and a sterile prep and drape was performed of the left lower extremity. The limb was then exsanguinated with Esmarch bandage, tourniquet inflated to 300 mmHg. An anterior medial vertical skin incision was made just to the medial side of the tibial tubercle. After skin was sharply incised, dissection was carried down bluntly to the underlying fascia. The fascia was incised in line with the skin incision and reflected posteriorly and anteriorly revealing the underlying fracture. Next, a small fragment 4-hole T-plate was pre-bent to fit the contour of the anterior medial tibial plateau. This was then under C-arm guidance, placed against the bone and then fixed with two 3.5 mm screws in the vertical limb below the fracture through the plate. Once affixed, a large bone tenaculum was used to compress the fracture site, this resulted in anatomic alignment. This was then followed by insertion of 2 locking screws through the horizontal limb of the plate, getting excellent stability across the fracture. AP, lateral, oblique C-arm images were then obtained and showed anatomical alignment of the fracture. At this point, the incision site was irrigated with bulb syringe and then closed in layers with 0 Vicryl for the fascia, 2-0 Vicryl subcutaneously, and parminder for the skin. Xeroform gauze, Webril, and Deven wrap dressing were applied to the leg, and then the leg was placed back in a knee immobilizer. The tourniquet was let down at the completion of dressing, and then the patient was transferred to recovery room in stable condition. There were no complications. She tolerated the procedure well. Job ID: [id number]
--- NOTE | 2018-02-16 16:37 | PDOC.PN ---
- Subjective Encounter Start Date: 02/16/18 Encounter Start Time: 16:35 Subjective: f/u for AMS s/p fall with L tibial plateau fx with ORIF 02/16/19. -: Post op pt developed A-fib RVR per nursing. Started on Cardizem -: gtt after bolus. - Objective Resuscitation Status - Order Detail: 02/14/18 14:03 Resuscitation Status Routine Resuscitation Status: FULL: Full Resuscitation MAR Reviewed: Yes Vital Signs & Weight: Vital Signs (12 hours) Temp Pulse Resp BP Pulse Ox 02/16/18 10:35 98 02/16/18 10:30 98.2 F 90 18 149/62 H 98 02/16/18 04:38 98.1 F 67 18 148/69 H 95 Weight Weight 173 lb 12.8 oz I&O: 02/15/18 02/16/18 02/17/18 06:59 06:59 06:59 Intake Total 1540 1320 Output Total 2600 500 Balance -1060 820 Result Diagrams: 02/15/18 05:02 02/15/18 05:02 EKG Reviewed by me: Yes (Tele - A-fib in 140's) Phys Exam - Physical Examination alert, states a few words HEENT: PERRLA, sclera anicteric, oral pharynx no lesions Neck: no nodes, no JVD, supple, full ROM Respiratory: no wheezing, no rales, no rhonchi, clear to auscultation bilateral S1, S2, tachycardica Cardiovascular: no significant murmur, no rub, irregular Gastrointestinal: soft, non-tender, no distention, positive bowel sounds LLE with surgical dressing and brace in place Musculoskeletal: pulses present Neurological: moves all 4 limbs Skin: normal turgor, cap refill <2 seconds Dx/Plan (1) Atrial fibrillation with RVR Code(s): I48.91 - UNSPECIFIED ATRIAL FIBRILLATION Status: Acute Comment: Apparently new-onset, Cardizem 10mg IV bolus then gtt @ 5mg/h, 2D Echo pending, consider Cardiology evaluation (2) Acute metabolic encephalopathy Code(s): G93.41 - METABOLIC ENCEPHALOPATHY Status: Acute Comment: Likely polypharmacy etiology, improved overall, resume and monitor home medications, may need to titrate psychotropes (3) Closed fracture of left proximal tibia Code(s): S82.102A - UNSP FRACTURE OF UPPER END OF LEFT TIBIA, INIT FOR CLOS FX Status: Acute Comment: s/p ORIF 02/16/18, pain control (4) Fracture of left proximal fibula Code(s): S82.832A - OTH FRACTURE OF UPPER AND LOWER END OF LEFT FIBULA, INIT Status: Acute Comment: LLE brace per Ortho (5) Medication overdose Code(s): T50.901A - POISONING BY UNSP DRUG/MEDS/BIOL SUBST, ACCIDENTAL, INIT Status: Suspected Comment: Suspect polypharmacy, monitor clinically (6) Anxiety and depression Code(s): F41.9 - ANXIETY DISORDER, UNSPECIFIED; F32.9 - MAJOR DEPRESSIVE DISORDER, SINGLE EPISODE, UNSPECIFIED Status: Chronic Comment: Resume Lyrica and Lexapro (7) Fibromyalgia Status: Chronic - Plan continue antibiotics, health and social care teacher Continue supportive mgmt -: Cardizem gtt -: Check 2D echo -: Morphine Sulfate IV for pain control -: Resume Lyrica and Lexapro * AM lab: BMP, CBC
[2018-02-16] MEDS ORDERED: ePHEDrine/0.9% NaCl/PF SYRINGE 50 mg/10 ml ONE (20:44)
[2018-02-16] MEDS ORDERED: PROPOFOL 200 MG/20 ML VIAL ONE (20:44)
[2018-02-16] MEDS ORDERED: Lidocaine 1% PF 5 ML VIAL ONE (20:44)
[2018-02-16] MEDS: Pregabalin 75 MG CAP PO SCH (21:30)
[2018-02-17] MEDS: Levothyroxine Sodium 50 MCG TAB PO SCH (06:33)
[2018-02-17] MEDS: Clindamycin/D5W 900 MG in Premix Bag 1 BAG IVPB SCH (06:33)
[2018-02-17 06:35] LABS: Anion Gap 17 mmol/L (10-20); BUN (Urea Nitrogen) 7 mg/dL (9.8-20.1); Calc. Creatinine Clearance 103 mL/min (70-130); Carbon Dioxide 22 mmol/L (23-31); Chloride 102 mmol/L (98-107); Estimated GFR-MDRD 88; Glucose 104 mg/dL (80-115); Potassium 3.3 mmol/L (3.5-5.1); Sodium 138 mmol/L (136-145)
[2018-02-17 06:52] LABS: Band 4 % (5-11); Hemoglobin 14.9 g/dL (12.0-16.0); Lymphocytes 3 % (21-51); MDiff Complete? YES; Mean Corpuscular HGB CONC 34.8 g/dL (32.0-36.0); Mean Corpuscular Hemoglobin 30.2 pg (27.0-31.0); Mean Corpuscular Volume 86.6 fL (78.0-98.0); Mean Platelet Volume 8.6 fL (7.4-10.4); Monocytes 7 % (0-10); Neutrophil 82 % (42-75); PLT Morphology Comment Appears Adequate; Platelet Count 284 thou/uL (130-400); RBC Distribution Width 13.7 % (11.5-14.5); RBC Morphology Normal; Reactive Lymphocytes 4 % (0-10); Red Blood Cell (RBC) Count 4.94 mill/uL (4.20-5.40); White Blood Cell (WBC) Count 11.6 thou/uL (4.8-10.8)
[2018-02-17] MEDS: Pregabalin 75 MG CAP PO SCH ×2 (10:13→20:33)
[2018-02-17] MEDS: Famotidine 20 MG TAB PO SCH ×2 (10:15→20:33)
[2018-02-17] MEDS: Escitalopram Oxalate 20 mg Tablet PO SCH (10:15)
[2018-02-17] MEDS: Enoxaparin Sodium 40 MG/0.4 ML SYRINGE SC SCH (10:16)
[2018-02-17] MEDS: Sodium Chloride 0.9% 1,000 ML IV SCH (10:17)
[2018-02-17] MEDS: Morphine 4 MG/ML VIAL SLOW IVP PRN ×2 (10:32→19:12)
[2018-02-17] MEDS ORDERED: Potassium Chloride 20 MEQ TAB PO SCH (13:30)
--- NOTE | 2018-02-17 13:30 | PDOC.PN ---
- Subjective Encounter Start Date: 02/17/18 Encounter Start Time: 13:25 Subjective: f/u for paroxysmal A-fib RVR tx with Cardizem gtt now SR. s/p -: L tibial plateau fx with ORIF POD #1. c/o of some RAGLAND improved with -: and ice pack. - Objective Resuscitation Status - Order Detail: 02/14/18 14:03 Resuscitation Status Routine Resuscitation Status: FULL: Full Resuscitation MAR Reviewed: Yes Vital Signs & Weight: Vital Signs (12 hours) Temp Pulse Resp BP BP Pulse Ox 02/17/18 07:59 97 02/17/18 07:57 98.2 F 71 15 120/65 97 02/17/18 04:53 99.2 F 84 14 140/75 97 Weight Weight 178 lb 3.2 oz I&O: 02/16/18 02/17/18 02/18/18 06:59 06:59 06:59 Intake Total 1320 753 Output Total 500 1950 Balance 820 -1197 Result Diagrams: 02/17/18 05:32 02/17/18 05:32 Additional Labs: Microbiology 02/14/18 08:17 Venous blood - Left Arm Blood Culture - Preliminary NO GROWTH AT 48 HOURS 02/14/18 07:55 Venous blood - Left Arm Blood Culture - Preliminary NO GROWTH AT 48 HOURS Laboratory Tests 02/15/18 05:02 Potassium 3.8 EKG Reviewed by me: Yes (Tele - SR) Phys Exam - Physical Examination Constitutional: NAD HEENT: PERRLA, sclera anicteric, oral pharynx no lesions Neck: no nodes, no JVD, supple, full ROM Respiratory: no wheezing, no rales, no rhonchi, clear to auscultation bilateral S1, S2 Cardiovascular: RRR, no significant murmur, no rub, gallop Gastrointestinal: soft, non-tender, no distention, positive bowel sounds LLE/knee edema with dressing in place Musculoskeletal: pulses present Neurological: normal sensation, moves all 4 limbs Psychiatric: A&O x 3 Skin: normal turgor, cap refill <2 seconds Dx/Plan (1) Atrial fibrillation with RVR Code(s): I48.91 - UNSPECIFIED ATRIAL FIBRILLATION Status: Acute Comment: Apparently new-onset converting back to SR in less than 24h, d/c Cardizem, 2D Echo pending (2) Acute metabolic encephalopathy Code(s): G93.41 - METABOLIC ENCEPHALOPATHY Status: Acute Comment: Likely polypharmacy etiology, improved overall, resume and monitor home medications, may need to titrate psychotropes (3) Closed fracture of left proximal tibia Code(s): S82.102A - UNSP FRACTURE OF UPPER END OF LEFT TIBIA, INIT FOR CLOS FX Status: Acute Comment: s/p ORIF 02/16/18, pain control, POD #1 (4) Fracture of left proximal fibula Code(s): S82.832A - OTH FRACTURE OF UPPER AND LOWER END OF LEFT FIBULA, INIT Status: Acute Comment: LLE brace per Ortho (5) Medication overdose Code(s): T50.901A - POISONING BY UNSP DRUG/MEDS/BIOL SUBST, ACCIDENTAL, INIT Status: Suspected Comment: Suspect polypharmacy, monitor clinically (6) Anxiety and depression Code(s): F41.9 - ANXIETY DISORDER, UNSPECIFIED; F32.9 - MAJOR DEPRESSIVE DISORDER, SINGLE EPISODE, UNSPECIFIED Status: Chronic Comment: Resume Lyrica and Lexapro (7) Fibromyalgia Status: Chronic - Plan PT/OT, social work administrator, DVT proph w/SCDs Stable currently -: D/C Cardizem gtt -: Saline lock IVF's -: 2D echo pending -: KCL 40meq BID * AM lab: BMP
[2018-02-17] MEDS: Potassium Chloride 20 MEQ TAB PO SCH (16:56)
[2018-02-17] MEDS: SUMAtriptan Succinate 50 MG TAB PO PRN (16:56)
[2018-02-18] MEDS: Morphine 4 MG/ML VIAL SLOW IVP PRN ×4 (00:41→17:36)
[2018-02-18] MEDS: Levothyroxine Sodium 50 MCG TAB PO SCH (06:12)
[2018-02-18 06:23] LABS: Anion Gap 16 mmol/L (10-20); BUN (Urea Nitrogen) 14 mg/dL (9.8-20.1); Calc. Creatinine Clearance 98 mL/min (70-130); Calcium 9.1 mg/dL (7.8-10.44); Carbon Dioxide 23 mmol/L (23-31); Chloride 103 mmol/L (98-107); Estimated GFR-MDRD 81; Glucose 96 mg/dL (80-115); Sodium 137 mmol/L (136-145)
[2018-02-18] MEDS: Famotidine 20 MG TAB PO SCH ×2 (09:47→21:07)
[2018-02-18] MEDS: Enoxaparin Sodium 40 MG/0.4 ML SYRINGE SC SCH (09:47)
[2018-02-18] MEDS: Escitalopram Oxalate 20 mg Tablet PO SCH (09:47)
[2018-02-18] MEDS: Cyclobenzaprine 10 MG TAB PO PRN (09:47)
[2018-02-18] MEDS: Potassium Chloride 20 MEQ TAB PO SCH ×2 (09:47→16:53)
[2018-02-18] MEDS: Pregabalin 75 MG CAP PO SCH ×2 (10:50→21:07)
--- NOTE | 2018-02-18 17:10 | PDOC.PN ---
- Subjective Encounter Start Date: 02/18/18 Encounter Start Time: 17:05 Subjective: f/u for L tibial plateau fx with ORIF POD #2. Feels better overall and -: migraine RAGLAND resolving. Ambulated with PT with some LLE pain. - Objective Resuscitation Status - Order Detail: 02/14/18 14:03 Resuscitation Status Routine Resuscitation Status: FULL: Full Resuscitation MAR Reviewed: Yes Vital Signs & Weight: Vital Signs (12 hours) Temp Pulse Pulse Pulse Resp BP BP 02/18/18 14:30 02/18/18 14:15 97.9 F 82 18 02/18/18 11:51 98.3 F 77 18 02/18/18 10:35 78 82 142/66 H 175/81 H 02/18/18 08:24 79 83 130/85 156/88 H 02/18/18 07:52 02/18/18 07:32 98.6 F 80 16 BP BP Pulse Ox 02/18/18 14:30 97 02/18/18 14:15 133/83 97 02/18/18 11:51 140/98 H 02/18/18 10:35 02/18/18 08:24 02/18/18 07:52 97 02/18/18 07:32 136/91 H 97 Weight Weight 175 lb 11.2 oz I&O: 02/17/18 02/18/18 02/19/18 06:59 06:59 06:59 Intake Total 753 867 Output Total 1950 560 Balance -1197 307 Result Diagrams: 02/17/18 05:32 02/18/18 05:15 Radiology Reviewed by me: Yes (2D echo - EF 60-65%, Grade I/III diast dysfxn) Phys Exam - Physical Examination Constitutional: NAD HEENT: PERRLA, sclera anicteric, oral pharynx no lesions Neck: no nodes, no JVD, supple, full ROM Respiratory: no wheezing, no rales, no rhonchi, clear to auscultation bilateral S1, S2 Cardiovascular: RRR, no significant murmur, no rub, gallop Gastrointestinal: soft, non-tender, no distention, positive bowel sounds LLE with edema of knee, surgical dressing in place Musculoskeletal: pulses present Neurological: normal sensation, moves all 4 limbs Psychiatric: A&O x 3 Skin: normal turgor, cap refill <2 seconds Dx/Plan (1) Atrial fibrillation with RVR Code(s): I48.91 - UNSPECIFIED ATRIAL FIBRILLATION Status: Acute Comment: Apparently new-onset converting back to SR in less than 24h, d/c Cardizem, 2D Echo showed preserved EF with mild diast dysfunction (2) Acute metabolic encephalopathy Code(s): G93.41 - METABOLIC ENCEPHALOPATHY Status: Acute Comment: Likely polypharmacy etiology, improved overall, resume and monitor home medications, may need to titrate psychotropes (3) Closed fracture of left proximal tibia Code(s): S82.102A - UNSP FRACTURE OF UPPER END OF LEFT TIBIA, INIT FOR CLOS FX Status: Acute Comment: s/p ORIF 02/16/18, pain control, POD #2, pain control , OOB/ambulate with PT (4) Fracture of left proximal fibula Code(s): S82.832A - OTH FRACTURE OF UPPER AND LOWER END OF LEFT FIBULA, INIT Status: Acute Comment: LLE brace per Ortho (5) Medication overdose Code(s): T50.901A - POISONING BY UNSP DRUG/MEDS/BIOL SUBST, ACCIDENTAL, INIT Status: Suspected Comment: Suspect polypharmacy, monitor clinically (6) Anxiety and depression Code(s): F41.9 - ANXIETY DISORDER, UNSPECIFIED; F32.9 - MAJOR DEPRESSIVE DISORDER, SINGLE EPISODE, UNSPECIFIED Status: Chronic Comment: Resume Lyrica and Lexapro (7) Fibromyalgia Status: Chronic Comment: Continue Lexapro and Lyrica - Plan PT/OT, social media job titles, out of bed/ambulate, DVT proph w/lovenox Stable overall -: Continue pain control as clinically indicated -: OOB with PT -: CM for Rehab options -: Likely d/c in 48h * .
[2018-02-18] MEDS: SUMAtriptan Succinate 50 MG TAB PO PRN (17:36)
[2018-02-19] MEDS: Levothyroxine Sodium 50 MCG TAB PO SCH (05:43)
[2018-02-19] MEDS: Morphine 4 MG/ML VIAL SLOW IVP PRN ×3 (05:44→18:16)
[2018-02-19] MEDS: Enoxaparin Sodium 40 MG/0.4 ML SYRINGE SC SCH (08:42)
[2018-02-19] MEDS: Potassium Chloride 20 MEQ TAB PO SCH (08:42)
[2018-02-19] MEDS: Famotidine 20 MG TAB PO SCH ×2 (08:43→19:56)
[2018-02-19] MEDS: Escitalopram Oxalate 20 mg Tablet PO SCH (08:43)
[2018-02-19] MEDS: Pregabalin 75 MG CAP PO SCH ×2 (08:43→19:57)
[2018-02-19] MEDS: Acetaminophen 325 MG TAB PO PRN (14:44)
[2018-02-19] MEDS: traMADol HCl 50 MG TAB PO PRN (14:44)
--- NOTE | 2018-02-19 15:04 | PDOC.PN ---
- Subjective Encounter Start Date: 02/19/18 Encounter Start Time: 15:00 Subjective: f/u s/p L tibial plateau fx with ORIF POD #3. Non-weight bearing on LLE. -: Doing ok overall and less RAGLAND's. Appetite improving. - Objective Resuscitation Status - Order Detail: 02/14/18 14:03 Resuscitation Status Routine Resuscitation Status: FULL: Full Resuscitation MAR Reviewed: Yes Vital Signs & Weight: Vital Signs (12 hours) Temp Pulse Resp BP Pulse Ox 02/19/18 12:00 97.7 F 70 12 122/81 94 L 02/19/18 08:42 96 02/19/18 08:00 97.8 F 76 12 138/84 96 02/19/18 04:48 98 F 69 20 137/84 96 Weight Weight 175 lb 11.2 oz I&O: 02/18/18 02/19/18 02/20/18 06:59 06:59 06:59 Intake Total 867 1870 Output Total 560 Balance 307 1870 Result Diagrams: 02/17/18 05:32 02/18/18 05:15 Additional Labs: Microbiology 02/14/18 08:17 Venous blood - Left Arm Blood Culture - Preliminary NO GROWTH AT 48 HOURS 02/14/18 07:55 Venous blood - Left Arm Blood Culture - Preliminary NO GROWTH AT 48 HOURS Laboratory Tests 02/15/18 05:02 Potassium 3.8 Phys Exam - Physical Examination Constitutional: NAD HEENT: PERRLA, sclera anicteric, oral pharynx no lesions Neck: no nodes, no JVD, supple, full ROM Respiratory: no wheezing, no rales, no rhonchi, clear to auscultation bilateral S1, S2 Cardiovascular: RRR, no significant murmur, no rub, gallop Gastrointestinal: soft, non-tender, no distention, positive bowel sounds LLE with dressing in place Musculoskeletal: pulses present Neurological: normal sensation, moves all 4 limbs Psychiatric: A&O x 3 Skin: normal turgor, cap refill <2 seconds Dx/Plan (1) Atrial fibrillation with RVR Code(s): I48.91 - UNSPECIFIED ATRIAL FIBRILLATION Status: Acute Comment: Apparently new-onset converting back to SR in less than 24h, d/c Cardizem, 2D Echo showed preserved EF with mild diast dysfunction, sinus rhythm currently, continue medical mgmt (2) Acute metabolic encephalopathy Code(s): G93.41 - METABOLIC ENCEPHALOPATHY Status: Acute Comment: Likely polypharmacy etiology, improved overall, resume and monitor home medications, may need to titrate psychotropes, resolved (3) Closed fracture of left proximal tibia Code(s): S82.102A - UNSP FRACTURE OF UPPER END OF LEFT TIBIA, INIT FOR CLOS FX Status: Acute Comment: s/p ORIF 02/16/18, pain control, POD #3, pain control , OOB/ambulate with PT (4) Fracture of left proximal fibula Code(s): S82.832A - OTH FRACTURE OF UPPER AND LOWER END OF LEFT FIBULA, INIT Status: Acute Comment: LLE brace per Ortho (5) Medication overdose Code(s): T50.901A - POISONING BY UNSP DRUG/MEDS/BIOL SUBST, ACCIDENTAL, INIT Status: Suspected Comment: Suspect polypharmacy, monitor clinically (6) Anxiety and depression Code(s): F41.9 - ANXIETY DISORDER, UNSPECIFIED; F32.9 - MAJOR DEPRESSIVE DISORDER, SINGLE EPISODE, UNSPECIFIED Status: Chronic Comment: Resume Lyrica and Lexapro (7) Fibromyalgia Status: Chronic Comment: Continue Lexapro and Lyrica - Plan PT/OT, psychosocial rehabilitation counselor, out of bed/ambulate, DVT proph w/lovenox Stable currently -: Continue OOB with PT -: Inpt Rehab screening -: D/C KCL -: Continue Levothyroxine 50mcg daily * .
[2018-02-19] MEDS: SUMAtriptan Succinate 50 MG TAB PO PRN (18:10)
[2018-02-20] MEDS: Levothyroxine Sodium 50 MCG TAB PO SCH (05:52)
[2018-02-20] MEDS ORDERED: SUMAtriptan Succinate 50 MG TAB PO PRN (08:01)
[2018-02-20] MEDS: Enoxaparin Sodium 40 MG/0.4 ML SYRINGE SC SCH (08:59)
[2018-02-20] MEDS ORDERED: Potassium Chloride 20 MEQ TAB PO SCH (09:00)
[2018-02-20] MEDS: Pregabalin 75 MG CAP PO SCH (09:00)
[2018-02-20] MEDS: Famotidine 20 MG TAB PO SCH (09:01)
[2018-02-20] MEDS: traMADol HCl 50 MG TAB PO PRN ×2 (09:01→16:17)
[2018-02-20] MEDS: Escitalopram Oxalate 20 mg Tablet PO SCH (09:01)
[2018-02-20] MEDS: Acetaminophen 325 MG TAB PO PRN ×2 (09:02→16:17)
[2018-02-20 16:16] VITALS: BP 139/85; TEMP 98.3
--- NOTE | 2018-02-21 14:03 | DIS ---
DATE OF ADMISSION: 02/14/2018 DATE OF DISCHARGE: 02/20/2018 DISCHARGE DIAGNOSES: 1. Acute metabolic encephalopathy, multifactorial including polypharmacy, resolved. 2. Left proximal tibial plateau fracture, status post open reduction and internal fixation on 02/16/2018. 3. Proximal left fibula fracture, nonoperative management. 4. Atrial fibrillation with rapid ventricular response with current sinus mechanism. 5. Anxiety/depression. 6. Fibromyalgia. CONSULTATIONS: Dr. Price with Orthopedic Surgery Service. PERTINENT LABORATORY AND X-RAY FINDINGS: Potassium ranged between 3.3 to 5.0. Lactic acid level 1.0. BNP 76.5. CBC showed a white blood cell count ranging between 9.0 to 12.3, hemoglobin ranged between 12.0 to 14.9. Urine drug screen positive for tricyclics. Plasma alcohol level less than 10. Blood cultures x2 dated 02/14/2018, showed no growth at 5 days. Portable chest x-ray dated 02/14/2018, showed no acute cardiopulmonary process. CT of the brain without contrast dated 02/14/2018, showed no acute intracranial process. Small vessel ischemic changes noted. Remote lacunar infarct of the anterior limb of left internal capsule. Four views of the left knee dated 02/14/2018, showed suprapatellar effusion with fat fluid level. Proximal tibia and fibula fractures noted. CT angiogram of the chest dated 02/14/2018, showed atelectasis of bilateral lung graham. No evidence for pulmonary embolus. 2D transthoracic echocardiogram dated 02/17/2018, showed ejection fraction of 60% to 65%. Grade 1/3 diastolic dysfunction noted. HOSPITAL COURSE: The patient was initially admitted after presenting with altered mental status and apparent fall. The patient underwent extensive evaluation including imaging of the left lower extremity showing evidence of a proximal tibia and fibula fracture. The patient also underwent evaluation with neuroimaging showing no acute intracranial process. The patient was evaluated by the Orthopedic Surgery Service due to the left lower extremity fracture and underwent open reduction and internal fixation of the left tibial plateau fracture on 02/16/2018. The patient is also given general supportive management with likely polypharmacy at the underlying etiology of the patient's presentation with altered mentation. The patient clinically improved and mentally cleared with supportive management and titration of her psychotropic and pain medications. The patient's postoperative course was unremarkable and continued on a left lower extremity knee immobilizer. The patient remains nonweightbearing on the left lower extremity at the direction of the Orthopedic Surgery Service and was deemed an appropriate candidate due to mobility concerns and previous altered mentation to receive supervised medical care in an inpatient rehabilitation setting. I have examined the patient at the time of discharge and discussed followup instructions. The patient verbalized understanding and agreement, ready for discharge on 02/20/2018. DISCHARGE MEDICATIONS: 1. Flexeril 10 mg p.o. at bedtime p.r.n. 2. Lexapro 20 mg p.o. daily. 3. Levothyroxine 50 mcg p.o. daily. 4. Lovenox 40 mg subcutaneously daily. 5. Lyrica 300 mg p.o. b.i.d. 6. Sumatriptan 100 mg p.o. daily p.r.n. migraine headaches. 7. Tramadol 50 mg 1 to 2 tablets p.o. q.6 hours p.r.n. pain. FOLLOWUP: The patient may follow up with Dr. Janene Paul after discharge from inpatient rehabilitation. The patient may follow up with Dr. Price with Orthopedic Surgery Service and to call his office for appointment, time, and date. CONDITION ON DISCHARGE: Stable. ACTIVITY: Ad-otilia. Nonweightbearing on the left lower extremity. DIET: Regular. CODE STATUS: Full. DISPOSITION: [facility] on 02/20/2018. TIME SPENT: Total time preparing and coordinating discharge, 33 minutes. Job ID: [id number]
== END 2018-02-20 18:15 | DRG 492 ==
LOC: ERS 07:46 → 2NO 13:47 → SURG A 02-18 14:27
PROVIDERS: ADMIT Emergency Medicine; ATTEND Emergency Medicine
PROC: 0QSH04Z Reposition Left Tibia with Internal Fixation Device, Open Approach (ICD-10-PCS; principal; 2018-02-16)
DX: S82.142A Displaced bicondylar fracture of left tibia, initial encounter for closed fracture (principal); G93.41 Metabolic encephalopathy; S82.832A Other fracture of upper and lower end of left fibula, initial encounter for closed fracture; I48.0 Paroxysmal atrial fibrillation; E03.9 Hypothyroidism, unspecified; M79.7 Fibromyalgia; M54.9 Dorsalgia, unspecified; G89.29 Other chronic pain; G43.909 Migraine, unspecified, not intractable, without status migrainosus; F41.8 Other specified anxiety disorders; T50.905A Adverse effect of unspecified drugs, medicaments and biological substances, initial encounter; Z88.0 Allergy status to penicillin; Z88.8 Allergy status to other drugs, medicaments and biological substances; W18.30XA Fall on same level, unspecified, initial encounter; Y92.009 Unspecified place in unspecified non-institutional (private) residence as the place of occurrence of the external cause
CPT/HCPCS: 36415; 51701; 70450; 71045; 71275; 76000; 76001; 80048; 80053; 80306; 80307; 81003; 82140; 82550; 82805; 83605; 83690; 83880; 84484; 85007; 85025; 85027; 85379; 87040; 93005; 93306; 96361; 96365; 96366; A4353; C1713; G8996-GN-CI; G8997-GN-CI; J0360; J1650; J2001; J2270; J2704; J3010; J3411; J3490; J7042; J7050; Q0162; S0020

== ENCOUNTER 2018-03-30 13:07 | Emergency (ER) | payer MEDICARE ==
[2018-03-30] MEDS ORDERED: Ketorolac Tromethamine 30 MG/ML VIAL ONE (15:48)
== END 2018-03-30 17:48 | disposition home or self-care (01) ==
LOC: ERS 13:07
DX: M79.7 Fibromyalgia (principal); M25.562 Pain in left knee; E03.9 Hypothyroidism, unspecified; M81.0 Age-related osteoporosis without current pathological fracture; F32.9 Major depressive disorder, single episode, unspecified; Z87.891 Personal history of nicotine dependence
CPT/HCPCS: 96372; J1885

== ENCOUNTER 2018-05-15 21:16 | Emergency (ER) | payer MEDICARE ==
[2018-05-15] MEDS ORDERED: Naloxone HCl 0.4 mg/ml Vial ONE (21:24)
[2018-05-15 22:44] LABS: #Basophils 0.1 thou/uL (0.0-0.2); #Eosinphils 0.1 thou/uL (0.0-0.7); #Lymphocytes 1.6 thou/uL (1.20-3.40); #Monocytes 1.1 thou/uL (0.11-0.59); #Neutrophils 10.2 thou/uL (1.40-6.50); %Basophils 0.7 % (0.0-1.0); %Eosinophils 0.6 % (0.0-10.0); %Lymphocytes 12.5 % (21.0-51.0); %Monocytes 8.3 % (0.0-10.0); %Neutrophils 77.9 % (42.0-75.0); Hemoglobin 13.1 g/dL (12.0-16.0); Mean Corpuscular HGB CONC 32.1 g/dL (32.0-36.0); Mean Corpuscular Hemoglobin 29.3 pg (27.0-31.0); Mean Corpuscular Volume 91.3 fL (78.0-98.0); Platelet Count 258 thou/uL (130-400); RBC Distribution Width 13.4 % (11.5-14.5); Red Blood Cell (RBC) Count 4.47 mill/uL (4.20-5.40); White Blood Cell (WBC) Count 13.1 thou/uL (4.8-10.8)
[2018-05-15 22:55] LABS: ALT (SGPT) 67 U/L (8-55); AST (SGOT) 42 U/L (5-34); Alkaline Phosphatase 126 U/L (40-150); Anion Gap 15 mmol/L (10-20); BUN (Urea Nitrogen) 14 mg/dL (9.8-20.1); Bilirubin, Total 0.3 mg/dL (0.2-1.2); Calc. Creatinine Clearance 0 mL/min (70-130); Calcium 9.8 mg/dL (7.8-10.44); Carbon Dioxide 27 mmol/L (23-31); Chloride 100 mmol/L (98-107); Estimated GFR-MDRD 88; Globulin 3.2 g/dL (2.4-3.5); Glucose 112 mg/dL (80-115); Potassium 4.8 mmol/L (3.5-5.1); Protein, Total 7.2 g/dL (6.0-8.3); Sodium 137 mmol/L (136-145)
[2018-05-15 22:57] LABS: Acetaminophen Less than 6.0 mcg/mL (10.0-30.0); Alcohol Less than 10 mg/dL (Less than 10); Salicylate Less than 8.0 mg/dL (15.0-30.0)
== END 2018-05-16 01:55 | disposition home or self-care (01) ==
LOC: ERS 21:16
DX: T40.601A Poisoning by unspecified narcotics, accidental (unintentional), initial encounter (principal); J96.01 Acute respiratory failure with hypoxia; E03.9 Hypothyroidism, unspecified; G43.909 Migraine, unspecified, not intractable, without status migrainosus; F32.9 Major depressive disorder, single episode, unspecified; Z87.891 Personal history of nicotine dependence; Z79.899 Other long term (current) drug therapy
CPT/HCPCS: 36416; 80053; 80307; 85025; 93005; 96361; 96374; J2310

== ENCOUNTER 2019-06-10 08:27 | Emergency (ER) | payer MEDICARE ==
[2019-06-10] MEDS ORDERED: Hydrocodone-Acetamin 15 ML UDCUP ONE (09:45)
[2019-06-10] MEDS ORDERED: HYDROcodone/Acetaminophen 7.5/325 mg Tablet ONE ×2 (09:46→12:05)
--- NOTE | 2019-06-10 09:54 | RAD ---
RIGHT SHOULDER 3 VIEWS: HISTORY: Fall with shoulder pain. FINDINGS: There are very mild arthritic changes of the shoulder. The bones appear demineralized. I do not see any signs of fracture or dislocation. IMPRESSION: No evidence of fracture. POS: [facility]
--- NOTE | 2019-06-10 10:06 | RAD ---
RIGHT KNEE 4 VIEWS: HISTORY: Knee pain. FINDINGS: There is a nondisplaced fracture involving the anterior cortex of the patella. I do not see that it definitely extends through the entire patella. There is a small joint effusion present. There is so me minimal medial compartment joint space narrowing. IMPRESSION: Nondisplaced patellar fracture. POS: [facility]
--- NOTE | 2019-06-10 10:21 | RAD ---
LEFT KNEE 4 VIEWS: HISTORY: Knee pain. COMPARISON: 02/16/2018 exam. FINDINGS: There has been open reduction internal fixation of a medial tibial fracture with plate and screws. O ld fibular head fracture is present. There are arthritic changes of the medial compartment of the kn ee. There are no signs of fracture or dislocation. The lateral view for this knee is at this point is within the right knee folder. IMPRESSION: No acute injury. POS: [facility]
== END 2019-06-10 16:07 ==
LOC: ERS 08:27
DX: S82.001A Unspecified fracture of right patella, initial encounter for closed fracture (principal); F32.9 Major depressive disorder, single episode, unspecified; E03.9 Hypothyroidism, unspecified; G43.909 Migraine, unspecified, not intractable, without status migrainosus; M81.0 Age-related osteoporosis without current pathological fracture; Z79.01 Long term (current) use of anticoagulants; Z79.899 Other long term (current) drug therapy; W18.09XA Striking against other object with subsequent fall, initial encounter